=== PATIENT | female | born 1955 | race Two or more races ===

== ENCOUNTER 2018-06-19 08:53 | Outpatient (CLI) | payer OTHER | END 2018-06-19 09:04 | disposition home or self-care (01) | LOC: RAD 501 08:53 | DX: I15.8 Other secondary hypertension (principal) ==

== ENCOUNTER 2024-11-18 10:16 | Outpatient (CLI) | payer OTHER ==
[~2024-11-18 10:16] MED LIST: DICLOFENAC SOD100 MG PO
== END 2024-11-18 10:17 | disposition home or self-care (01) ==
LOC: NUCLEAR 10:16
PROVIDERS: ATTEND Obstetrics & Gynecology
DX: M81.0 Age-related osteoporosis without current pathological fracture (principal)

== ENCOUNTER 2025-04-25 08:15 | Outpatient (CLI) | payer OTHER ==
[~2025-04-25 08:15] MED LIST changes: +DICLOFENAC POTA50 MG PO; +NORFLEX100MG PO
== END 2025-04-25 08:20 | disposition home or self-care (01) ==
LOC: RAD 08:15
PROVIDERS: ATTEND Physical Medicine & Rehabilitation
DX: M75.51 Bursitis of right shoulder (principal); M17.12 Unilateral primary osteoarthritis, left knee; R10.9 Unspecified abdominal pain; R10.10 Upper abdominal pain, unspecified; K80.20 Calculus of gallbladder without cholecystitis without obstruction